=== PATIENT | female | born 1990 ===

== ENCOUNTER 2020-02-01 17:50 | Emergency (ER) | payer OTHER ==
[~2020-02-01] VITALS: Ht 154.9 cm; Wt 58.1 kg
--- NOTE | 2020-02-01 18:08 | NUR ---
PT WAS TRIAGED. THERE ARE NO ER BEDS AVAILABLE AT THIS TIME. PT STATED SHE WILL WAIT IN HER CAR AND TO CALL HER CELL PHONE WHEN THERE IS A BED AVAILABLE FOR HER.
--- NOTE | 2020-02-01 21:58 | NUR ---
left without being seen
== END 2020-02-01 22:01 | disposition left against medical advice (07) ==
LOC: ER 17:50
DX: Z75.3 Unavailability and inaccessibility of health-care facilities (principal)